=== PATIENT | female | born 1985 | race Two or more races ===

== ENCOUNTER 2022-09-05 07:35 | Outpatient (CLI) | payer OTHER | END 2022-09-05 07:47 | disposition home or self-care (01) | LOC: LAB 07:35 | PROVIDERS: ATTEND Internal Medicine Hematology & Oncology | DX: D50.8 Other iron deficiency anemias (principal); R79.9 Abnormal finding of blood chemistry, unspecified; I10 Essential (primary) hypertension; R74.02 Elevation of levels of lactic acid dehydrogenase [LDH]; K76.89 Other specified diseases of liver; D63.8 Anemia in other chronic diseases classified elsewhere; D55.0 Anemia due to glucose-6-phosphate dehydrogenase [G6PD] deficiency; D51.1 Vitamin B12 deficiency anemia due to selective vitamin B12 malabsorption with proteinuria; D51.0 Vitamin B12 deficiency anemia due to intrinsic factor deficiency; E03.8 Other specified hypothyroidism; E06.3 Autoimmune thyroiditis; D68.8 Other specified coagulation defects; D69.1 Qualitative platelet defects; D51.3 Other dietary vitamin B12 deficiency anemia; R73.01 Impaired fasting glucose ==

== ENCOUNTER → 2022-11-21 07:29 | Outpatient (CLI) | payer OTHER | END | disposition home or self-care (01) | LOC: LAB 07:29 | PROVIDERS: ATTEND Internal Medicine Hematology & Oncology | DX: D50.8 Other iron deficiency anemias (principal); R79.9 Abnormal finding of blood chemistry, unspecified; I10 Essential (primary) hypertension; R74.02 Elevation of levels of lactic acid dehydrogenase [LDH]; K76.89 Other specified diseases of liver; D51.8 Other vitamin B12 deficiency anemias; R97.8 Other abnormal tumor markers; R97.1 Elevated cancer antigen 125 [CA 125]; R97.0 Elevated carcinoembryonic antigen [CEA]; D51.3 Other dietary vitamin B12 deficiency anemia; R73.01 Impaired fasting glucose; E03.8 Other specified hypothyroidism ==

== ENCOUNTER 2023-05-22 07:08 | Outpatient (CLI) | payer OTHER ==
[2023-05-22 08:47] LABS: HEMATOCRIT 36.7 % (36.0-45.00); HEMOGLOBIN 12.2 g/dL (12.0-15.00); MEAN CELL VOLUME 87.1 fL (80.00-100.00); MEAN CORPUSCULAR HGB CONC 33.3 g/dl (32.0-36.0); PLATELET COUNT 342 K/uL (150-450); RED BLOOD COUNT 4.21 M/uL (4.00-6.00); RED CELL DISTRIBUTION WIDTH 13.2 % (11.5-14.5)
[2023-05-22 09:13] LABS: % SATURACION 11.1 % (15-50); ALBUMIN 3.2 gm/dL (3.4-5.0); BILIRUBIN TOTAL 0.2 mg/dL (0.3-1.2); CALCIUM 8.6 mg/dL (8.5-10.1); CREATININE SERUM 0.74 mg/dL (0.55-1.02); FERRITIN 68.4 NG/ML (8-252); GFR 87.37; GLOBULINA 4.2 G/DL (2.4-3.5); POTASSIUM 4.21 mEq/L (3.5-5.1); TOTAL PROTEIN 7.4 gm/dL (6.4-8.2)
[2023-05-24 12:23] LABS: FOLIC ACID > 20.00 ng/ml (4.78-20); VITAMIN D3 25 HYDROXY 28.39 ng/ml (30-120)
[2023-05-24 14:27] LABS: MANUAL PLATELET COUNT 500; PLATELET ESTIMATE INCREASED (NORMAL)
[2023-05-25 10:08] LABS: CA 125 9.3 U/mL (0.0-38.1)
== END 2023-05-22 07:31 | disposition home or self-care (01) ==
LOC: LAB 07:08
PROVIDERS: ATTEND Internal Medicine Hematology & Oncology
DX: D50.8 Other iron deficiency anemias (principal); D51.3 Other dietary vitamin B12 deficiency anemia; R73.01 Impaired fasting glucose; E03.8 Other specified hypothyroidism; E55.9 Vitamin D deficiency, unspecified; R97.8 Other abnormal tumor markers; K76.89 Other specified diseases of liver